=== PATIENT | female | born 1960 | race Caucasian/White ===

== ENCOUNTER 2024-10-06 08:20 | Outpatient (OUT) | payer BC, SELFPAY ==
--- OUTSIDE RECORDS SUMMARY | 2024-10-06 08:22 | XMS_ITS | Clinical Summary ---
Author Organization [facility] Address [address] [place] [address] Care Team Providers Care Silver Service Waiter Name Role Phone Unavailable Primary Care Provider Unavailabl e Allergies Active Allergy Reactions Criticality Noted Date Comments Amoxicillin Unknown 05/17/2023 Influenza Vaccines Anaphylaxis High 08/31/2017 Preservatives to flu vaccines Penicillin G GI intolerance 05/17/2023 Sulfa Antibiotics 05/17/2023 Sulfasalazine Unknown 05/17/2023 Medications calcium 200 MG tablet Calcium Active alendronate (Fosamax) 70 MG tablet Take 70 mg by mouth 1 (one) time per week 3 Active Glucosamine 500 MG capsule glucosamine Active Estrogens Conjugated (Premarin) 0.625 MG/GM cream Active cholecalciferol (Vitamin D-3) 25 MCG (1000 UT) tablet Take 1,000 Units by mouth in the morning and 1,000 Units in the evening. Active Garlic 2 MG capsule Garlic Active Vitamin D-Vitamin K (Dosoquin) 5500-200 UNIT-MCG tablet Dosoquin Acti ve mometasone (Elocon) 0.1 % cream apply to affected area ON CHEST AND BACK twice a day if needed Active mometasone (Elocon) 0.1 % creamIndication s:Other atopic dermatitis Apply to affected areas, up to twice a day when flared, do not use one the face, groin, or underarms, 30 day supply 45 g 10 4 Active ketoconazole (NIZOral) 2 % creamIndication s:Other seborrheic dermatitis Apply every day-bid prn to ears 30 g 1 4 Active clobetasol (Temovate) 0.05 % external solutionIndicat ions:Other seborrheic dermatitis Apply to scalp Apply to affected areas, up to twice a day when flared, do not use one the face, groin, or underarms, 30 day supply 50 mL 1 4 Active Active Problems No known active problems Family History Medical History Relation Name Comments Psoriasis Other Relation Name Status Comments Father Mother Other Social History Tobacco Use Types Packs/Day Years Used Date Smoking Tobacco: Never Smokeless Tobacco: Never Tobacco Cessation:Counseling Given: Not Answered Alcohol Use Standard Drinks/Week Comments Not Currently 0 (1 standard drink = 0.6 oz pur e alcohol) Comments Unknown Sex and Gender Information Value Date Recorded Sex Assigned at Not on file Legal Sex Female 7:34 PM EDT Gender Identity Not on file Sexual Orientation Not on file Last Filed Vital Signs Vital Sign Reading Time Taken Comments Blood Pressure 92/64 12/30/2018 12:00 PM EDT Pulse - - Temperature - - Respiratory Rate - - Oxygen Saturation - - Inhaled Oxygen Concentration - - Weight 64.4 kg (142 lb) 12/30/2018 12:00 PM EDT Height 165.1 cm (5' 5 ) 05/12/2021 12:00 PM EST Body Mass Index 23.63 12/30/2018 12:00 PM EDT Plan of Treatment Upcoming Encounters Date Type Department Care Team (Late st Contact Info) Description 05/29/2025 4:05 PM EST Office Visit [facility] [address] [place] [address] April Meraz MD [address] [place] [address] Insurance [employer]
--- OUTSIDE RECORDS SUMMARY | 2024-10-06 08:22 | XMS_ITS | Clinical Summary ---
Author Organization [facility] Address [address] [place] [id number] Care Team Providers Care Rn Camp Name Role Phone Unavailable Primary Care Provider Unavailabl e Medications sodium chloride (SALINE MIST) 0.65 % nasal sprayIndication s:URI, acute Use 1 [place] in the nose as needed for cold/allergy symptoms. 2 Active uhdrfif-TL-IF-a cetaminophen-GG (JR-SELTZER PLUS COLD DAY-NT) 12.5-10-20-650 mg (nt) ppksIndications :URI, acute Per box instructions 2 Active Active Problems No known active problems Social History Tobacco Use Types Packs/Day Years Used Date Smoking Tobacco: Never Assessed Comments Unknown Sex and Gender Information Value Date Recorded Sex Assigned at Not on file Legal Sex Female 9:31 AM EST Gender Identity Not on file Sexual Orientation Not on file Plan of Treatment Health Maintenance Due Date Last Done Comments Anxiety Screening 1980 Depression Screening 1980 HIV Screening 1980 Hepatitis C Screening 1980 Cervical Cancer Screening 12/11/[address] Colonography 12/11/2007 Cologuard (FIT-DNA) 12/11/2007 Colonoscopy 12/11/2007 Colorectal Cancer Screening 12/11/2007 Diabetes Screening 12/11/2007 Fecal Occult Blood 12/11/2007 Lipid Screening 12/11/2007 Sigmoidoscopy 12/11/2007 Pneumococcal Vaccine: 50+ (1 of 1 - PCV) 2012 Shingrix Vaccine (1 of 2) 2012 Covid-19 Vaccine ( - 2023- season) 2023 Influenza Vaccine (#1) 2024 DTaP,Tdap,Td Vaccine (2 - Td or Tdap) 01/21/2030 RSV Vaccine (1 - 1-dose 75+ series) 2037 Insurance [facility] PPO
--- OUTSIDE RECORDS SUMMARY | 2024-10-06 08:22 | XMS_ITS | Encounter Summary ---
Author Organization [facility] Address [address] [place] [address] Care Team Providers Care Proc Tech Name Role Phone Unavailable Primary Care Provider Unavailabl e Encounter Details Date Type Department Care Team (Late st Contact Info) Description 05/21/2023 Abstract [facility] [address] [place] [address] April Meraz MD [address] [facility] [address] [place] [address] Social History Tobacco Use Types Packs/Day Years Used Date Smoking Tobacco: Never Smokeless Tobacco: Never Alcohol Use Standard Drinks/Week Comments Not Currently 0 (1 standard drink = 0.6 oz pur e alcohol) Comments Unknown Sex and Gender Information Value Date Recorded Sex Assigned at Not on file Legal Sex Female 7:34 PM EDT Gender Identity Not on file Sexual Orientation Not on file documented as of this encounter Plan of Treatment Upcoming Encounters Date Type Department Care Team (Late st Contact Info) Description 05/29/2025 4:05 PM EST Office Visit [facility] [address] [place] [address] April Meraz MD [address] [place] [address] documented as of this encounter Visit Diagnoses Not on filedocumented in this encounter
--- OUTSIDE RECORDS SUMMARY | 2024-10-06 08:22 | XMS_ITS | Clinical Summary ---
Author Organization [facility] Address [address] [place] [address] Care Team Providers Care Electronics Technician Name Role Phone Unavailable Primary Care Provider Unavailabl e Social History Tobacco Use Types Packs/Day Years Used Date Smoking Tobacco: Never Assessed Comments Unknown Sex and Gender Information Value Date Recorded Sex Assigned at Not on file Legal Sex Female 9:50 PM EST Gender Identity Not on file Sexual Orientation Not on file Plan of Treatment Not on file Insurance [employer] [address] [place] [address] [facility]
--- NOTE | 2024-10-06 08:45 | MM_ITS ---
Patient Name: ELLE SALINAS MR#: [id number] : 1960 Exam Date: 10/06/2024 Ordering Doctor: DEE PAREDES RADIOLOGY REPORT PROCEDURE: MM TOMOSYNTHESIS SCREENING BI COMPARISON: MM TOMOSYNTHESIS SCREENING BI, 08/19/2023. MM TOMOSYNTHESIS SCREENING BI, 03/27/2022. INDICATIONS: Screening Calculator Name NCI Breast Cancer Risk Assessment Tool 5 Year Breast Cancer Risk 1.50% Lifetime Breast Cancer Risk 7.20% Personal Breast Cancer No Personal Ovarian Cancer No Treatments None Family Cancers Grandfather-maternal with thyroid cancer at age ~65; Grandfather-paternal with thyroid/lung cancer at age ~65. LOCATION: [facility] BREAST COMPOSITION: There are scattered areas of fibroglandular density. FINDINGS: RIGHT BREAST: No significant suspicious finding. There is a similar focal asymmetry of the right breast cleared there is a benign-appearing lymph node on the right. LEFT BREAST: No significant suspicious finding. DIAGNOSTIC CATEGORY 2--BENIGN FINDING: RECOMMENDATIONS: ROUTINE MAMMOGRAM AND CLINICAL EVALUATION IN 12 MONTHS. PLEASE NOTE: A NORMAL MAMMOGRAM DOES NOT EXCLUDE THE POSSIBILITY OF BREAST CANCER. A CLINICALLY SUSPICIOUS PALPABLE LUMP SHOULD BE BIOPSIED. Dictated by: Mathew Ashby MD on 10/06/2024 at 11:14 Approved by: Mathew Ashby MD on 10/06/2024 at 11:18
== END 2024-10-06 08:21 | disposition home or self-care (01) ==
LOC: MAMMO 08:20
PROVIDERS: PCP Nurse Practitioner Family; Visit Provider Nurse Practitioner Adult Health
DX: Z12.31 Encounter for screening mammogram for malignant neoplasm of breast (principal); Z80.8 Family history of malignant neoplasm of other organs or systems; Z80.1 Family history of malignant neoplasm of trachea, bronchus and lung
CPT/HCPCS: 77063; 77067